=== PATIENT | male | born 1995 | race Caucasian/White ===

== ENCOUNTER 2018-12-25 18:55 | Emergency (ER) | payer BC, OTHER ==
[~2018-12-25] VITALS: Ht 167.6 cm; Wt 86.4 kg
--- NOTE | 2018-12-25 19:15 | NUR ---
PT ARRIVED TO ROOM 37 AMBULATORY. PT C/O THROBBING IN HEAD. PT STATES AT WORK YESTERDAY HE HIT HIS HEAD ON A METAL POLE ON THE LEFT TEMPORAL SPOT TWICE. PT DRESSED IN GOWN AND ATTTACHED TO MONITOR. PT AAO X 4, PUPILS PERRL 3 AND BRISK BILATERALLY. PT ON GURNEY, CALL LIGHT WITHIN REACH AND SIDERAIL X [address]
--- NOTE | 2018-12-25 19:31 | NUR ---
PT TO CT.
[2018-12-25 19:37] VITALS: BP 129/95
--- NOTE | 2018-12-25 19:38 | NUR ---
PT BACK FROM CT.
--- NOTE | 2018-12-25 20:02 | NUR ---
ALL RESULTS BACK AT THIS TIME, CHART UP FOR RECHECK BY .
--- NOTE | 2018-12-25 20:11 | NUR ---
Patient/Caregiver given discharge instructions and they have confirmed that they understand the instructions. Patient ambulatory with steady gait.
== END 2018-12-25 20:12 | disposition home or self-care (01) ==
LOC: ED 19:47
DX: S09.90XA Unspecified injury of head, initial encounter (principal); X58.XXXA Exposure to other specified factors, initial encounter; Y93.89 Activity, other specified; Y92.69 Other specified industrial and construction area as the place of occurrence of the external cause; Y99.0 Civilian activity done for income or pay
CPT/HCPCS: 70450; 99284